=== PATIENT | male | born 1960 ===

== ENCOUNTER → 2022-02-22 | Outpatient (CLI) | payer OTHER ==
--- NOTE | 2022-02-22 09:24 | MR ---
EXAMINATION TYPE: MR lumbar spine wo/w con DATE OF EXAM: 02/22/2022 9:13 AM COMPARISON: None. CLINICAL INDICATION:Male, 61 years old with history of M48.00 SPINAL STENOSIS, SITE TECHNIQUE: Multi planar, multi sequence imaging was performed utilizing: T1-weighted, T2-weighted, a nd turbo inversion recovery imaging of the lumbar spine. IV Contrast: 9 cc Gadavist FINDINGS: Alignment: The lumbar vertebral bodies have preserved heights and alignment. Cord: The conus medullaris and the distal spinal cord appear unremarkable with regards to their signa l intensity and morphology. No abnormal post contrast enhancement. Bones/Discs: Increased inversion recovery signal of a pedicles of the right L4-L5 vertebral levels. M ultilevel disc degeneration changes with osteophyte formation present. Findings most pronounced at L5 -S1. Minimal disc desiccation is present. 1.6 cm high T1/high T2 signal vertebral body hemangioma in L3. No abnormal post contrast enhancement. L1-L2: No significant disc pathology. Spinal canal is patent. The neural foramen are patent. L2-L3: Disc bulge with central disc protrusion without significant spinal canal stenosis. The neural foramen are patent. L3-L4: No significant disc pathology. Spinal canal is patent. Facet joint arthropathy with mild spina l canal stenosis. L4-L5: Disc bulging and facet joint arthropathy result in moderate to severe spinal canal and moderat e bilateral neural foraminal stenosis. Cauda equina bunching at this level. L5-S1: Disc bulging and facet joint arthropathy result in moderate spinal canal and mild left and mod erate to severe right neural foraminal stenosis. Other findings: None. IMPRESSION: 1. L2-L3 disc bulge with superimposed protrusion without significant spinal canal stenosis. 2. L4-L5 moderate to severe spinal canal stenosis secondary to disc bulging and facet joint arthropat hy. 3. No abnormal post contrast enhancement.
== END | disposition home or self-care (01) ==
LOC: RADMRIMAIN 08:18
PROVIDERS: ATTEND Internal Medicine Geriatric Medicine
DX: M51.27 Other intervertebral disc displacement, lumbosacral region (principal); M47.817 Spondylosis without myelopathy or radiculopathy, lumbosacral region; M99.74 Connective tissue and disc stenosis of intervertebral foramina of sacral region; M48.061 Spinal stenosis, lumbar region without neurogenic claudication
CPT/HCPCS: 72158; A9585

== ENCOUNTER 2024-09-02 12:27 | Day surgery (SDC) | payer OTHER ==
[2024-08-31 13:15] VITALS: BMI 36.0
[~2024-09-02 12:27] MED LIST: LIDOCAINE 1% (10MG/ML) FOR IV START INTRADERMA PRN
[2024-09-02 13:30] VITALS: TEMP 98.4
[2024-09-02] MEDS: IV FLUID CONTINUATION 1,000 ML IV ONE (13:37)
[2024-09-02] MEDS: LACTATED RINGERS 1,000 ML IV SCH (13:40)
[2024-09-02] MEDS ORDERED: PROPOFOL 10 MG/ML 20 ML VIAL IV ONE (13:40)
--- NOTE | 2024-09-02 13:57 | P.PCN ---
Date of Procedure: 09/02/24 Procedure(s) Performed: BRIEF HISTORY: Patient is a 64-year-old pleasant white male scheduled for an elective colonoscopy as a part of colon cancer and family history of colon cancer. His father was diagnosed with colon cancer at age 60. PROCEDURE PERFORMED: Colonoscopy. PREOPERATIVE DIAGNOSIS: Screening for colon cancer and family history of colon cancer. IV sedation per Anesthesia. PROCEDURE: After informed consent was obtained, the patient, was brought into the endoscopy unit. IV sedation was administered by Anesthesia under continuous monitoring. Digital rectal examination was normal. Initially the Olympus CF-160 flexible video colonoscope was then inserted in the rectum, gradually advanced into the cecum without any difficulty. Careful examination was performed as the scope was gradually being withdrawn. Ileocecal valve and the appendiceal orifice were visualized and appeared normal. Prep was excellent. Mucosa of the cecum, ascending colon, transverse colon, descending colon, sigmoid colon, and rectum appeared normal. Retroflexion was performed in the rectum and no lesions were seen. The patient tolerated the procedure well. IMPRESSION: Normal-appearing colon from rectum to cecum with no evidence of colorectal neoplasia. RECOMMENDATIONS: Findings of this examination were discussed with the patient as well as his family. He was advised to have repeat colonoscopy every 5 years because of the family history of colon cancer.
[2024-09-02 14:19] VITALS: BP 121/73; PULSE 69; RESP 16
== END 2024-09-02 15:23 | disposition home or self-care (01) ==
LOC: ORWHC2ENDO 12:27
PROVIDERS: ATTEND Internal Medicine Gastroenterology
DX: Z12.11 Encounter for screening for malignant neoplasm of colon (principal); J45.909 Unspecified asthma, uncomplicated; Z80.0 Family history of malignant neoplasm of digestive organs; Z87.81 Personal history of (healed) traumatic fracture; Z88.0 Allergy status to penicillin; Z79.899 Other long term (current) drug therapy
CPT/HCPCS: 45378; J2704